=== PATIENT | male | born 1975 | race Two or more races ===

== ENCOUNTER 2019-12-26 11:30 | Inpatient (IN) | payer OTHER ==
[~2019-12-26] VITALS: Ht 190.5 cm; Wt 124.7 kg
[2020-01-01] MEDS ORDERED: HYOSCYAMINE0.125 M1 PO ×2 (15:42→15:48)
[2020-01-01] MEDS ORDERED: OXYC1TAB9 PO ×2 (15:45→15:48)
== END 2020-01-01 16:10 | disposition home or self-care (01) | DRG 331 ==
LOC: SURG 12-29 06:00 → O/R 12-29 06:00 → SURH 12-29 07:00 → O/R 12-29 11:30 → SURH 12-29 11:30 → SURG 12-29 11:58
PROVIDERS: ADMIT Surgery; ATTEND Surgery
PROC: 0DJD8ZZ Inspection of Lower Intestinal Tract, Via Natural or Artificial Opening Endoscopic (ICD-10-PCS; 2019-12-29)
PROC: 0DTN4ZZ Resection of Sigmoid Colon, Percutaneous Endoscopic Approach (ICD-10-PCS; principal; 2019-12-29 07:00)
DX: K57.32 Diverticulitis of large intestine without perforation or abscess without bleeding (principal)

== ENCOUNTER 2023-06-04 14:23 | Outpatient (CLI) | payer OTHER ==
[~2023-06-04 14:23] MED LIST: HYOSCYAMINE0.125 M1 PO; OXYC1TAB9 PO
== END 2023-06-04 14:34 | disposition home or self-care (01) ==
LOC: RAD 14:23
PROVIDERS: ATTEND Orthopaedic Surgery
DX: M25.522 Pain in left elbow (principal); M25.512 Pain in left shoulder